=== PATIENT | female | born 1955 | race Caucasian/White ===

== ENCOUNTER 2021-03-19 12:38 | Emergency (ER) | payer OTHER ==
[~2021-03-19] VITALS: Ht 160 cm; Wt 79.5 kg
[2021-03-19] MEDS ORDERED: VENTAER INH (12:52)
[2021-03-19] MEDS ORDERED: BUPR150T12 PO (12:52)
[2021-03-19] MEDS ORDERED: PRAV80TA2 PO (12:52)
[2021-03-19] MEDS ORDERED: ATEN50TA9 PO (12:52)
[2021-03-19] MEDS ORDERED: FLUT11IN INH (12:52)
[2021-03-19] MEDS ORDERED: ASPI81TA26 PO (12:52)
[2021-03-19 13:30] LABS: BASO # 0.1 10^3/uL (0.0-0.2); BASO % 0.4 % (0.0-1.0); EOS # 0.1 10^3/uL (0.0-0.5); EOS % 0.6 % (0.0-3.0); HEMATOCRIT 44.2 % (36.0-47.0); HEMOGLOBIN 15.3 g/dl (12.0-15.5); LYMPH # 1.7 10^3/uL (1.5-5.0); LYMPH % 13.5 % (24.0-44.0); MEAN CORPUSCULAR HEMOGLOBIN 31.1 pg (27.0-33.0); MEAN CORPUSCULAR HGB CONC 34.6 g/dl (32.0-36.5); MEAN CORPUSCULAR VOLUME 89.8 fl (80.0-96.0); MONO # 0.8 10^3/uL (0.0-0.8); MONO % 6.1 % (2.0-8.0); NEUTROPHILS # 9.9 10^3/uL (1.5-8.5); NEUTROPHILS % 78.8 % (36.0-66.0); PLATELET COUNT, AUTOMATED 300 10^3/uL (150-450); RED BLOOD COUNT 4.92 10^6/uL (4.00-5.40); WHITE BLOOD COUNT 12.6 10^3/uL (4.0-10.0)
[2021-03-19] MEDS ORDERED: POTASSIUM CHLORIDE 10MEQ SR TABLET PO ONE (13:35)
[2021-03-19 14:02] LABS: ALBUMIN 3.8 GM/DL (3.2-5.2); ALT/SGPT 19 U/L (12-78); BILIRUBIN,DIRECT 0.2 MG/DL (0.0-0.2); BILIRUBIN,TOTAL 0.5 MG/DL (0.2-1.0); CK-MB VALUE MASS < 1.0 NG/ML (<3.6); CPK CREATINE PHOSPHOKINASE 43 U/L (26-192); MAGNESIUM LEVEL 1.9 MG/DL (1.8-2.4); MB/CK RELATIVE INDEX 2.33 (< OR =4); TOTAL PROTEIN 7.4 GM/DL (6.4-8.2); TROPONIN I < 0.02 NG/ML (< 0.10)
[2021-03-19] MEDS ORDERED: MECLIZINE 25 MG TABLET PO ONE (14:05)
[2021-03-19] MEDS ORDERED: NS 1,000 ML IV ONE (14:35)
[2021-03-19] MEDS ORDERED: CHLORTHALIDONE 25 MG TAB PO ONE (15:10)
[2021-03-19] MEDS ORDERED: atenoloL 50 MG TAB PO ONE (15:10)
[2021-03-19 15:18] VITALS: BP 178/75
[2021-03-19 15:27] VITALS: BP 178/75
[2021-03-19] MEDS ORDERED: MECL1TAB31 PO (15:37)
[2021-03-19] MEDS ORDERED: AMOX875T2 PO (15:37)
== END 2021-03-19 15:56 | disposition home or self-care (01) ==
LOC: M ED 12:38
DX: R42 Dizziness and giddiness (principal); J18.9 Pneumonia, unspecified organism; I10 Essential (primary) hypertension; E78.5 Hyperlipidemia, unspecified; F41.9 Anxiety disorder, unspecified; Z79.899 Other long term (current) drug therapy; Z79.82 Long term (current) use of aspirin; Z88.1 Allergy status to other antibiotic agents; Z88.2 Allergy status to sulfonamides; Z88.8 Allergy status to other drugs, medicaments and biological substances; F17.210 Nicotine dependence, cigarettes, uncomplicated

== ENCOUNTER → 2021-03-19 | Outpatient (REF) | payer OTHER ==
[~2021-03-19] MED LIST: AMOX875T2 PO; ASPI81TA26 PO; ATEN50TA9 PO; BUPR150T12 PO; FLUT11IN INH; MECL1TAB31 PO; PRAV80TA2 PO; VENTAER INH
== END ==
LOC: M LAB REF 16:05
PROVIDERS: ATTEND Physician Assistant
DX: R53.83 Other fatigue (principal)